=== PATIENT | male | born 1990 | race African-American/Black ===

== ENCOUNTER 2016-11-09 12:18 | Emergency (ER) | payer OTHER ==
[~2016-11-09 12:18] MED LIST: ALBUTEROL INH; ALBUTEROL MININEB NEB; ALBUTEROL17 G1 IH; ALBUTEROL17 GM INH; IBUPROFEN800 MG PO; KETOPROFEN PO; MEDROL4 MG/DOSE- PO; PREDNISONE PO; PREDNISONE10 MG PO; VISTARIL PO; ZITHROMAX1 G/PKT PO; ZYRTEC10 M2 PO
== END 2016-11-09 13:25 | disposition home or self-care (01) ==
LOC: CED 12:18
DX: J45.901 Unspecified asthma with (acute) exacerbation (principal); I10 Essential (primary) hypertension; F17.200 Nicotine dependence, unspecified, uncomplicated
CPT/HCPCS: 99283